=== PATIENT | female | born 1935 | race Caucasian/White ===

== ENCOUNTER 2016-11-18 09:08 | Inpatient (IN) | payer OTHER, MEDICARE ==
[~2016-11-18] VITALS: Ht 144.8 cm; Wt 38.5 kg
[~2016-11-18 09:08] MED LIST: ASPI81TA82 PO; CEPH500C3 PO; PRIN10TA PO; ZOCO10TA PO
[2016-11-18 09:27] VITALS: BP 165/105; PULSE 65; RESP 20; TEMP 98.1; O2SAT 95
[2016-11-18] MEDS ORDERED: ASPI81CH CHEW (09:35)
[2016-11-18] MEDS ORDERED: LISI10TA3 PO (09:35)
[2016-11-18] MEDS ORDERED: SODIUM CHLORIDE 0.9% FLUSH 10 ML FLUSH IV FLUSH PRN ×2 (09:45→13:00)
[2016-11-18] MEDS ORDERED: ONDANSETRON HCL 4 MG/2 ML VIAL IVP ONE (09:45)
[2016-11-18] MEDS ORDERED: MORPHINE SULFATE 4 MG/ML INJ IV PUSH ONE ×2 (09:45→14:15)
--- NOTE | 2016-11-18 09:59 | PD ---
HPI Chief Complaint: Abdominal Pain Time Seen by Provider: 09:27 Travel History International Travel<30 days: No Contact w/Intl Traveler<30days: No Traveled to known affect area: No History of Present Illness HPI 81 yo F arrives by EMS from home. She woke up with back pain. Pain then radiated to the abdomen. She was able to eat breakfast as normal, a protein shake. She reports nausea. She's had no vomiting or diarrhea. She denies fever. She has had no similar prior pain. She drinks alcohol very occasionally. To me she denies a past medical history. Here her records reveal history of hypertension and hypercholesterolemia DVT, or other medical problems including chronic back pain. Her suffered with pancreatitis. She denies any recent traumatic injury. No unusual foods. PFSH Past Medical History Hx Anticoagulant Therapy: No Blood Disorders: No Anxiety: No Depression: No Cancer: No Cardiovascular Problems: No High Cholesterol: Yes Chemotherapy: No Cerebrovascular Accident: No Diabetes: No Diminished Hearing: No Deep Vein Thrombosis: Yes Endocrine: No Genitourinary: No Hypertension: Yes Immune Disorder: No Musculoskeletal: Yes Neurologic: No Psychiatric: No Reproductive: Yes (HYSTERECTOMY) Respiratory: No Immunizations Current: Yes Radiation Therapy: No Menopausal: Yes Past Surgical History Abdominal Surgery: No AICD: No Arteriovenous Shunt: No Cardiac Surgery: No Ear Surgery: No Endocrine Surgery: No Eye Surgery: Yes (CATARACT) Genitourinary Surgery: No Gynecologic Surgery: No Hysterectomy: No Insulin Pump: No Joint Replacement: No Oral Surgery: No Pacemaker: No Thoracic Surgery: No Other Surgery: Yes (RETINAL DETACHMENT; R KNEE CAP REPLACEMENT) Social History Alcohol Use: No Tobacco Use: Yes (< 1 PACK/DAY) Substance Use: No Allergies-Medications (Allergen,Severity, Reaction): Coded Allergies: Sulfa (Verified Allergy, Severe, Hives, 11/18/16) Codeine (Verified Allergy, Intermediate, Nausea/Vomiting, 11/18/16) Reported Meds & Prescriptions Reported Meds & Active Scripts Active Reported Aspirin 81 Mg Chew 81 Mg CHEW DAILY Lisinopril 10 Mg Tab 10 Mg PO DAILY Review of Systems Except as stated in HPI: all other systems reviewed are Neg Physical Exam Narrative GENERAL: 81 yo F, WNWD, NAD SKIN: Warm and dry. HEAD: Atraumatic. Normocephalic. EYES: Pupils equal and round. No scleral icterus. No injection or drainage. ENT: No nasal bleeding or discharge. Mucous membranes pink and moist. NECK: Trachea midline. No JVD. CARDIOVASCULAR: Regular rate and rhythm. RESPIRATORY: No accessory muscle use. Clear to auscultation. Breath sounds equal bilaterally. GASTROINTESTINAL: Soft. Diffuse non-specific TTP. MUSCULOSKELETAL: Extremities without clubbing, cyanosis, or edema. No obvious deformities. NEUROLOGICAL: Awake and alert. No obvious cranial nerve deficits. Motor grossly within normal limits. Five out of 5 muscle strength in the arms and legs. Normal speech. PSYCHIATRIC: Appropriate mood and affect; insight and judgment normal. Data Data Last Documented VS Vital Signs Date Time Temp Pulse Resp B/P Pulse Ox O2 Delivery O2 Flow Rate FiO2 11/18/16 11:23 81 18 151/83 95 Room Air 11/18/16 09:27 98.1 VS reviewed Orders Complete Blood Count With Diff (11/18/16 09:40) Comprehensive Metabolic Panel (11/18/16 09:40) Lipase (11/18/16 09:40) Urinalysis - C+S If Indicated (11/18/16 09:40) Ct Abd/Pel W Iv Contrast(Rout) (11/18/16 09:40) Iv Access Insert/Monitor (11/18/16 09:40) Ecg Monitoring (11/18/16 09:40) Oximetry (11/18/16 09:40) Ondansetron Inj (Zofran Inj) (11/18/16 09:45) Sodium Chloride 0.9% Flush (Ns Flush) (11/18/16 09:45) Electrocardiogram (11/18/16 09:40) Morphine Inj (Morphine Inj) (11/18/16 09:45) Iohexol 350 Inj (Omnipaque 350 Inj) (11/18/16 11:55) Admit Order (Ed Use Only) (11/18/16 12:49) Labs Laboratory Tests Test 11/18/16 09:55 White Blood Count 9.9 TH/MM3 Red Blood Count 4.52 MIL/MM3 Hemoglobin 13.8 GM/DL Hematocrit 40.3 % Mean Corpuscular Volume 89.2 FL Mean Corpuscular Hemoglobin 30.5 PG Mean Corpuscular Hemoglobin 34.2 % Concent Red Cell Distribution Width 15.0 % Platelet Count 269 TH/MM3 Mean Platelet Volume 7.9 FL Neutrophils (%) (Auto) 81.3 % Lymphocytes (%) (Auto) 13.1 % Monocytes (%) (Auto) 4.0 % Eosinophils (%) (Auto) 0.7 % Basophils (%) (Auto) 0.9 % Neutrophils # (Auto) 8.0 TH/MM3 Lymphocytes # (Auto) 1.3 TH/MM3 Monocytes # (Auto) 0.4 TH/MM3 Eosinophils # (Auto) 0.1 TH/MM3 Basophils # (Auto) 0.1 TH/MM3 CBC Comment DIFF FINAL Differential Comment Sodium Level 135 MEQ/L Potassium Level 5.5 MEQ/L Chloride Level 102 MEQ/L Carbon Dioxide Level 26.8 MEQ/L Anion Gap 6 MEQ/L Blood Urea Nitrogen 14 MG/DL Creatinine 0.67 MG/DL Estimat Glomerular Filtration 84 ML/MIN Rate Random Glucose 115 MG/DL Calcium Level 9.0 MG/DL Total Bilirubin 0.8 MG/DL Aspartate Amino Transf 50 U/L (AST/SGOT) Alanine Aminotransferase 21 U/L (ALT/SGPT) Alkaline Phosphatase 69 U/L Total Protein 8.0 GM/DL Albumin 3.4 GM/DL Lipase 418 U/L [facility] Medical Decision Making Medical Screen Exam Complete: Yes Emergency Medical Condition: Yes Medical Record Reviewed: Yes Differential Diagnosis Constipation, Gastritis, Acute Cholecystitis, Biliary Colic, Pancreatitis, CLEMENS , Hepatitis, Bowel Obstruction, Cystitis, Mesenteric Ischemia, AAA, Appendicitis , Renal Stone/Hydronephrosis, GERD, perforated viscous Narrative Course CBC & BMP Diagram 11/18/16 09:55 Lipase 418 AST 50 LFTs otherwise normal Last 24 hours Impressions Abdomen/Pelvis CT 11/18/16 0940 Signed Impressions: Service Date/Time: Friday, November 18, 2016 11:38 - CONCLUSION: 1. There is a small amount of free fluid in the abdomen and pelvis of unknown etiology. Mild ileus. 2. Focal subsegmental consolidation medial aspect of right lower lobe incompletely evaluated. 3. No free air. No evidence for bowel obstruction. Diverticulosis without evidence for diverticulitis. 4. Osteopenia. Tip Guan MD Patient will be admitted for pancreatitis. ? R Middle Lung mass. d/w Dr Freeman. excellent pain control with 2mg morphine. Diagnosis Primary Impression: Pancreatitis Qualified Code: K85.90 - Acute pancreatitis, unspecified complication status, unspecified pancreatitis type Admitting Information Admitting Physician Requests: Admit Franco Ellison MD Nov 18, 2016 09:59
[2016-11-18 10:05] VITALS: RESP 18; O2SAT 95
[2016-11-18 10:10] LABS: BASOPHIL # 0.1 TH/MM3 (0-0.2); BASOPHIL % 0.9 % (0.0-2.0); EOSINOPHIL # 0.1 TH/MM3 (0-0.4); EOSINOPHIL % 0.7 % (0.0-4.0); HEMATOCRIT 40.3 % (35.0-46.0); HEMO FLAGS DIFF FINAL; LYMPH % 13.1 % (9.0-44.0); LYMPHOCYTE # 1.3 TH/MM3 (1.0-4.8); MEAN CELL VOLUME 89.2 FL (80.0-100.0); MEAN CORPUSCULAR HEMOGLOBIN 30.5 PG (27.0-34.0); MEAN CORPUSCULAR HGB CONC 34.2 % (32.0-36.0); NEUT % 81.3 % (16.0-70.0); PLATELET COUNT 269 TH/MM3 (150-450); RED BLOOD COUNT 4.52 MIL/MM3 (4.00-5.30); WHITE BLOOD COUNT 9.9 TH/MM3 (4.0-11.0)
[2016-11-18 10:30] LABS: ALKALINE PHOSPHATASE 69 U/L (45-117); ALT (GPT) 21 U/L (10-53); TOTAL BILIRUBIN ADULT 0.8 MG/DL (0.2-1.0)
[2016-11-18 10:51] LABS: ANION GAP 6 MEQ/L (5-15); AST (GOT) 50 U/L (15-37); BICARBONATE 26.8 MEQ/L (21.0-32.0); BLOOD UREA NITROGEN 14 MG/DL (7-18); CHLORIDE 102 MEQ/L (98-107); GLOMERULAR FILTRATION RATE 84 ML/MIN (>89); SODIUM (NA) 135 MEQ/L (136-145)
[2016-11-18 10:56] LABS: POTASSIUM 5.5 MEQ/L (3.5-5.1)
[2016-11-18 11:23] VITALS: BP 151/83; PULSE 81; RESP 18; O2SAT 95
[2016-11-18] MEDS ORDERED: IOHEXOL 350 MG/ML 10 ML VIAL (for RAD DIAG) IV ONE (11:55)
--- NOTE | 2016-11-18 12:16 | RADRPT ---
EXAM DATE/TIME: 11/18/2016 11:38 [facility] COMPARISON: No previous studies available for comparison. INDICATIONS : Lower abdomen pain today. IV CONTRAST: 60 cc Omnipaque 350 (iohexol) IV ORAL CONTRAST: No oral contrast ingested. RADIATION DOSE: 4.48 CTDIvol (mGy) MEDICAL HISTORY : Hypertension. deep vein thrombosis SURGICAL HISTORY : Hysterectomy. ENCOUNTER: Initial ACUITY: 1 day PAIN SCALE: 8/10 LOCATION: Bilateral lower quadrant TECHNIQUE: Volumetric scanning of the abdomen and pelvis was performed. Using automated exposure control and ad justment of the mA and/or kV according to patient size, radiation dose was kept as low as reasonably achievable to obtain optimal diagnostic quality images. DICOM format image data is available electro nically for review and comparison. FINDINGS: There is a focal area of consolidation in the right lower lobe medially which is incompletely evaluat ed. There is also some basilar atelectasis and mild emphysema. The bones are diffusely osteopenic. No acute fractures seen. No acute findings in the liver, spleen, adrenals, kidneys or pancreas. Aorta is tortuous and ectatic to about 2.7 cm. Portal vein is patent. There is a mild ileus. No bowel obstruction. There is colonic diverticulosis without evidence for div erticulitis. There is mild ascites in the abdomen and pelvis. Moderate coronary calcifications noted. CONCLUSION: 1. There is a small amount of free fluid in the abdomen and pelvis of unknown etiology. Mild ileus. 2. Focal subsegmental consolidation medial aspect of right lower lobe incompletely evaluated. 3. No free air. No evidence for bowel obstruction. Diverticulosis without evidence for diverticulitis . 4. Osteopenia. Tip Guan MD on November 18, 2016 at 12:08 Board Certified Radiologist. This report was verified electronically.
[2016-11-18] MEDS ORDERED: LACTULOSE SYRUP 20 GM/30 ML CUP PO PRN (13:00)
[2016-11-18] MEDS ORDERED: NALOXONE HCL 0.4 MG/ML AMP IV PRN (13:00)
[2016-11-18] MEDS ORDERED: MAGNESIUM HYDROXIDE SUSP 30 ML CUP PO PRN (13:00)
[2016-11-18] MEDS ORDERED: ONDANSETRON HCL 4 MG/2 ML VIAL IVP PRN ×2 (13:00→16:00)
[2016-11-18] MEDS ORDERED: BISACODYL 10 MG SUPP RECTAL PRN (13:00)
[2016-11-18] MEDS ORDERED: SENNOSIDES 8.6 MG TAB PO PRN (13:00)
[2016-11-18] MEDS: SODIUM CHLOR 0.9% 1000 ML INJ 1,000 ML IV SCH ×2 (13:16→21:23)
[2016-11-18 14:10] VITALS: BP 166/82; PULSE 88; RESP 18; O2SAT 95
[2016-11-18] MEDS ORDERED: ONDANSETRON HCL 4 MG/2 ML VIAL IV PUSH ONE (14:15)
[2016-11-18 15:01] LABS: BLOOD, URINE NEG (NEG); GLUCOSE,URINE NEG (NEG); KETONE, URINE 10 mg/dL (NEG); MUCUS URINE FEW /lpf (OCC); NITRITE,URINE NEG (NEG); PH, URINE 6.5 (5.0-8.5); SQUAMOUS EPITHELIAL CELL URINE 1 /hpf (0-5); URINE COLOR YELLOW (YELLW/STRAW)
[2016-11-18 15:03] LABS: COMMENT (UR) CULT NOT INDICATED; CULTURE IF INDICATED CULT NOT INDICATED
[2016-11-18] MEDS ORDERED: oxyCODONE/ACETAMINOPHEN 5 MG/325 MG TAB PO PRN (15:30)
--- NOTE | 2016-11-18 15:42 | HHI.HP ---
[facility] Nelli Patel MD Admission Diagnosis Pancreatitis, R Lung Mass, HyperK Diagnoses: Travel History International Travel<30 Days: No Contact w/Intl Traveler <30 Da: No Traveled to Known Affected Are: No History of Present Illness Mrs. Salgado is an 81-year-old female. She is here secondary to lower back pain and nausea. Workup shows elevation in lipase suggestive of pancreatitis. She does not drink alcohol but rarely. No recent alcohol use. Density at right medial lung is also seen on abdominal CT which is a mass versus pneumonia. Other conditions at baseline her hypertension lower extremity neuropathy right breast mass and kyphosis. When seen her pain is improved but she is nauseous from pain treatments. She received morphine in the ER. Zofran has benefited her nausea. She has no prior history of pancreatitis. No acute evidence of infection on labs to suggest the presence of a pneumonia. No cough, fever, chills or fatigue preceding the pain onset today. Her lower back pain could be a symptom pneumonia however. Her daughter does report she has been coughing at home. Review of Systems Constitutional: DENIES: Fatigue, Fever, Chills Eyes: DENIES: Blurred vision, Diplopia Ears, nose, mouth, throat: DENIES: Hearing loss, Vertigo Respiratory: COMPLAINS OF: Cough, DENIES: Wheezing, Shortness of breath Cardiovascular: DENIES: Chest pain, Palpitations, Syncope Gastrointestinal: COMPLAINS OF: Abdominal pain, DENIES: Black stools, Bloody stools Musculoskeletal: DENIES: Joint pain, Muscle aches Integumentary: DENIES: Abnormal pigmentation Hematologic/lymphatic: DENIES: Bruising Immunologic/allergic: DENIES: Eczema Neurologic: DENIES: Abnormal gait Psychiatric: DENIES: Anxiety, Confusion Past Family Social History Past Medical History Familial neuropathy (lower extremities) Hypertension Right breast mass Kyphosis Osteoporosis Past Surgical History Hysterectomy Retinal surgery on eye History right knee surgery Reported Medications Reported Meds & Active Scripts Active Reported Aspirin 81 Mg Chew 81 Mg CHEW DAILY Lisinopril 10 Mg Tab 10 Mg PO DAILY Allergies: Coded Allergies: Sulfa (Verified Allergy, Severe, Hives, 11/18/16) Codeine (Verified Allergy, Intermediate, Nausea/Vomiting, 11/18/16) Active Ordered Medications Administered Medications Medications (Trade) Dose Ordered Sig/Jean Route PRN Reason Start Time Stop Time Status Last Admin Dose Admin Sodium Chloride (NS 1000 ml Inj) 1,000 ml @ 125 mls/hr Q8H IV 11/18/16 12:52 11/18/16 13:16 Family History Neuropathy and father and siblings VT and mother at age 85 Social History Rarely drinks alcohol Daily smoker less than half a pack a day No drug abuse Physical Exam Vital Signs Vital Signs Date Time Temp Pulse Resp B/P Pulse Ox O2 Delivery O2 Flow Rate FiO2 11/18/16 14:10 88 18 166/82 95 Room Air 11/18/16 11:23 81 18 151/83 95 Room Air 11/18/16 10:05 18 11/18/16 10:05 18 95 Room Air 11/18/16 09:27 98.1 65 20 165/105 95 Room Air Physical Exam GENERAL: NAD, A&Ox3 HEAD: Normocephalic. NECK: Supple, trachea midline. No lymphadenopathy. EYES: No scleral icterus. No injection or drainage. CARDIOVASCULAR: Regular rate and rhythm without murmurs, gallops, or rubs. RESPIRATORY: Breath sounds equal bilaterally. No accessory muscle use. GASTROINTESTINAL: Abdomen soft, non-tender, nondistended. Epigastric tenderness MUSCULOSKELETAL: No cyanosis, or edema. Kyphosis SKIN: Warm and dry. NEURO: No focal neurological deficitis. Laboratory Laboratory Tests Test 11/18/16 11/18/16 09:55 12:15 White Blood Count 9.9 Red Blood Count 4.52 Hemoglobin 13.8 Hematocrit 40.3 Mean Corpuscular Volume 89.2 Mean Corpuscular Hemoglobin 30.5 Mean Corpuscular Hemoglobin 34.2 Concent Red Cell Distribution Width 15.0 Platelet Count 269 Mean Platelet Volume 7.9 Neutrophils (%) (Auto) 81.3 Lymphocytes (%) (Auto) 13.1 Monocytes (%) (Auto) 4.0 Eosinophils (%) (Auto) 0.7 Basophils (%) (Auto) 0.9 Neutrophils # (Auto) 8.0 Lymphocytes # (Auto) 1.3 Monocytes # (Auto) 0.4 Eosinophils # (Auto) 0.1 Basophils # (Auto) 0.1 CBC Comment DIFF FINAL Differential Comment Sodium Level 135 Potassium Level 5.5 Chloride Level 102 Carbon Dioxide Level 26.8 Anion Gap 6 Blood Urea Nitrogen 14 Creatinine 0.67 Estimat Glomerular Filtration 84 Rate Random Glucose 115 Calcium Level 9.0 Total Bilirubin 0.8 Aspartate Amino Transf 50 (AST/SGOT) Alanine Aminotransferase 21 (ALT/SGPT) Alkaline Phosphatase 69 Total Protein 8.0 Albumin 3.4 Lipase 418 Urine Color YELLOW Urine Turbidity CLEAR Urine pH 6.5 Urine Specific [place] 1.050 Urine Protein TRACE Urine Glucose (UA) NEG Urine Ketones 10 Urine Occult Blood NEG Urine Nitrite NEG Urine Bilirubin NEG Urine Urobilinogen LESS THAN 2.0 Urine Leukocyte Esterase NEG Urine RBC 1 Urine WBC 1 Urine Squamous Epithelial 1 Cells Urine Mucus FEW Microscopic Urinalysis Comment CULT NOT INDICATED Result Diagram: 11/18/1655 11/18/16954 Imaging Last Impressions Abdomen/Pelvis CT 11/18/16939 Signed Impressions: Service Date/Time: Sunday, November 18, 2016 11:38 - CONCLUSION: 1. There is a small amount of free fluid in the abdomen and pelvis of unknown etiology. Mild ileus. 2. Focal subsegmental consolidation medial aspect of right lower lobe incompletely evaluated. 3. No free air. No evidence for bowel obstruction. Diverticulosis without evidence for diverticulitis. 4. Osteopenia. Tip Guan MD Assessment and Plan Problem List: (1) Pancreatitis ICD Code: K85.90 Status: Acute Assessment and Plan Assessment and plan 81-year-old female admitted with pancreatitis and right lung mass Pancreatitis Low-fat diet IV hydration When necessary pain treatments Follow lipase level Right lung mass Possible pneumonia Start Levaquin Probiotics MRI of chest If pneumonia becomes less evident we'll discontinue antibiotics Follow CBC Hypertension Continue lisinopril Follow blood pressures Adjust if needed Lower extremity neuropathy Continue gabapentin Right breast mass This is being followed as an outpatient patient will continue to follow as an outpatient DVT prophylaxis SCDs Physician Certification 2 Midnight Certification Type: Admission for Inpatient Services Order for Inpatient Services The services are ordered in accordance with Medicare regulations or non- Medicare payer requirements, as applicable. In the case of services not specified as inpatient-only, they are appropriately provided as inpatient services in accordance with the 2-midnight benchmark. Estimated LOS (days): 4 days is the estimated time the patient will need to remain in the hospital, assuming treatment plan goals are met and no additional complications. Post-Hospital Plan: Home Problem Qualifiers (1) Pancreatitis: Qualified Code: K85.90 - Acute pancreatitis, unspecified complication status, unspecified pancreatitis type Franco Freeman MD Nov 18, 2016 15:42
[2016-11-18] MEDS ORDERED: LEVOFLOXACIN 500 MG PREMIX INJ 100 ML IV SCH (16:00)
[2016-11-18 16:25] VITALS: BP 168/95; PULSE 93; RESP 22; TEMP 97; O2SAT 93
[2016-11-18] MEDS: traMADol HCL 50 MG TAB PO PRN ×2 (17:21→22:50)
[2016-11-18] MEDS: LACTOBACILLUS ACIDOPHILUS TAB PO SCH ×2 (17:21→18:00)
[2016-11-18] MEDS: GABAPENTIN 300 MG CAP PO SCH ×2 (17:21→18:00)
[2016-11-18] MEDS ORDERED: HYDROmorphone HCL PF 1 MG/ML VIAL IV PUSH PRN (18:00)
[2016-11-18] MEDS ORDERED: HYDROmorphone HCL PF 1 MG/ML VIAL IV PUSH ONE (18:00)
[2016-11-18] MEDS: SODIUM CHLORIDE 0.9% FLUSH 10 ML FLUSH IV FLUSH SCH (19:49)
[2016-11-18 20:00] VITALS: BP 147/94; PULSE 97; RESP 16; TEMP 97.7; O2SAT 92
[2016-11-18] MEDS: DOCUSATE SODIUM 50 MG/SENNA 8.6 MG TAB PO SCH (21:23)
[2016-11-19] VITALS (11 sets, daily range): BP systolic 72–141; BP diastolic 48–91; PULSE 79–104; RESP 14–25; TEMP 96.9–97.6; O2SAT 92–98
[2016-11-19] MEDS: SODIUM CHLOR 0.9% 1000 ML INJ 1,000 ML IV SCH ×4 (04:52→21:04)
[2016-11-19 06:48] LABS: BASOPHIL % 0.1 % (0.0-2.0); HEMATOCRIT 43.6 % (35.0-46.0); LYMPH % 6.2 % (9.0-44.0); LYMPHOCYTE # 1.1 TH/MM3 (1.0-4.8); MEAN CELL VOLUME 90.6 FL (80.0-100.0); MEAN CORPUSCULAR HEMOGLOBIN 29.3 PG (27.0-34.0); MEAN CORPUSCULAR HGB CONC 32.4 % (32.0-36.0); MONO % 6.2 % (0.0-8.0); NEUT % 87.5 % (16.0-70.0); PLATELET COUNT 203 TH/MM3 (150-450); RED BLOOD COUNT 4.81 MIL/MM3 (4.00-5.30); RED CELL DISTRIBUTION WIDTH 14.9 % (11.6-17.2); WHITE BLOOD COUNT 18.3 TH/MM3 (4.0-11.0)
[2016-11-19 07:01] LABS: HEMO FLAGS AUTO DIFF
[2016-11-19 07:23] LABS: BICARBONATE 21.5 MEQ/L (21.0-32.0); POTASSIUM 3.8 MEQ/L (3.5-5.1)
[2016-11-19] MEDS ORDERED: SODIUM CHLORID 0.9% 500 ML INJ 500 ML IV ONE ×3 (08:15→17:45)
[2016-11-19] MEDS ORDERED: VANCOMYCIN INJ 1,000 MG in SODIUM CHLOR 0.9% 250 ML INJ 250 ML IV SCH (08:15)
--- NOTE | 2016-11-19 08:20 | HHI.PR ---
Subjective Remarks No acute events overnight. Patient reports subjective fever/chills. Is tachycardic to 101 and hypotensive this morning. States she has been short of breath. Denies any abdominal pain. Endorses nausea with last emesis being this morning. Objective Vitals Vital Signs Date Time Temp Pulse Resp B/P Pulse Ox O2 Delivery O2 Flow Rate FiO2 11/19/16 04:00 16 11/19/16 04:00 97.0 96 16 97/75 94 11/19/16 00:00 96.9 101 16 141/91 93 11/18/16 20:00 97.7 97 16 147/94 92 11/18/16 16:25 97.0 93 22 168/95 93 11/18/16 14:10 88 18 166/82 95 Room Air 11/18/16 11:23 81 18 151/83 95 Room Air 11/18/16 10:05 18 11/18/16 10:05 18 95 Room Air 11/18/16 09:27 98.1 65 20 165/105 95 Room Air I/O 11/18/16 11/18/16 11/18/16 11/19/16 11/19/16 11/19/16 07:00 15:00 23:00 07:00 15:00 23:00 Intake Total 360 ml 240 ml Balance 360 ml 240 ml Intake Oral 360 ml 240 ml # Voids 3 1 Result Diagram: 11/19/16 0546 11/19/16 0546 Objective Remarks GENERAL: NAD, A&Ox3 HEAD: Normocephalic. NECK: Supple, trachea midline. No lymphadenopathy. EYES: No scleral icterus. No injection or drainage. CARDIOVASCULAR: Regular rate and rhythm without murmurs, gallops, or rubs. RESPIRATORY: Breath sounds equal bilaterally. No accessory muscle use. GASTROINTESTINAL: Abdomen soft, non-tender, nondistended. Epigastric tenderness MUSCULOSKELETAL: No cyanosis, or edema. Kyphosis SKIN: Warm and dry. NEURO: No focal neurological deficitis. A/P Problem List: (1) Pancreatitis ICD Code: K85.90 Status: Acute (2) Sepsis ICD Code: A41.9 Status: Acute (3) HTN (hypertension) ICD Code: I10 Status: Acute Assessment and Plan Assessment and plan 81-year-old female admitted with pancreatitis and right lung mass versus consolidation Sepsis Patient tachycardic and hypotensive, endorsing subjective fever/chills. New- onset leukocytosis this morning. CT of the abdomen and pelvis revealed focal subsegmental consolidation versus mass. Patient started on Levaquin for possible pneumonia. UA within normal limits Started Vanc/Zosyn for probable pneumonia with sepsis Chest CT to further characterize pneumonia versus mass IV fluid bolus for hypotension and tachycardia Continue IV fluids Pancreatitis Patient with normal pancreas on CT abdomen and lipase level which has now returned to normal. Remains nauseated. Continue IV fluids. Low-fat diet. Right lung mass versus consolidation Possible pneumonia DC Levaquin and started antibiotics as above Hypertension Continue home lisinopril Follow blood pressures Adjust if needed Lower extremity neuropathy Continue gabapentin Right breast mass This is being followed as an outpatient patient will continue to follow as an outpatient DVT prophylaxis SCDs Lovenox Problem Qualifiers (1) Pancreatitis: Qualified Code: K85.90 - Acute pancreatitis, unspecified complication status, unspecified pancreatitis type Jalyn Brower MD R3 Nov 19, 2016 08:20
[2016-11-19 08:46] LABS: BANDS 21 % (0-6); NEUTROPHIL # MANUAL DIFF 17.4 TH/MM3 (1.8-7.7); PLATELET ESTIMATE SMEAR NORMAL (NORMAL); PLATELET MORPHOLOGY NORMAL (NORMAL); POLYS (SEG NEUTROPHILS) 74 % (16-70); WBC DIFF SAMPLE 100
[2016-11-19 08:47] LABS: SCAN/DIFF FINAL DIFF MANUAL
[2016-11-19] MEDS ORDERED: IOHEXOL 350 MG/ML 10 ML VIAL (for RAD DIAG) IV ONE (08:54)
[2016-11-19] MEDS: DOCUSATE SODIUM 50 MG/SENNA 8.6 MG TAB PO SCH ×2 (09:00→21:00)
[2016-11-19] MEDS: LISINOPRIL 10 MG TAB PO SCH (09:00)
--- NOTE | 2016-11-19 09:05 | RADRPT ---
EXAM DATE/TIME: 11/19/2016 08:48 [facility] COMPARISON: CT ABDOMEN & PELVIS W CONTRAST, November 18, 2016, 11:38. INDICATIONS : Abnormal chest x-ray, Right lower lobe density. IV CONTRAST: 65 cc Omnipaque 350 (iohexol) IV RADIATION DOSE: 5.13 CTDIvol (mGy) MEDICAL HISTORY : DVT SURGICAL HISTORY : Hysterectomy. ENCOUNTER: Initial ACUITY: 1 day PAIN SCALE: 0/10 LOCATION: Right lower chest TECHNIQUE: Volumetric scanning of the chest was performed. Using automated exposure control and adjustment of t he mA and/or kV according to patient size, radiation dose was kept as low as reasonably achievable to obtain optimal diagnostic quality images. DICOM format image data is available electronically for review and comparison. FINDINGS: There is severe emphysema. There is a large amount of ascites within the abdomen, and extensive ather osclerotic plaquing of the aorta identified, as well as the coronary arteries. There is no adenopathy in the mediastinum or hilar regions. Small bilateral pleural effusions are identified. The right pos terior costophrenic angle medially in the right lower lobe in the area of consolidative opacity measu ring 4.3 x 1.5 cm in transverse and AP dimension is identified. I believe this finding represents an area of focal atelectasis rather than a true mass. There is scarring in the right middle lobe. There is kyphosis and decreased bone density with degenerative changes of the spine noted. There is ectasia of the upper abdominal aorta measuring up to 2.9 cm on image 7. CONCLUSION: 1. Severe emphysema, small bilateral effusions. 2. Right middle lobe scarring. 3. Probable area of focal atelectasis right lower lobe posterior costophrenic angle. Three-month foll owup CT chest recommended. Ronak See MD on November 19, 2016 at 8:59 Board Certified Radiologist. This report was verified electronically.
[2016-11-19] MEDS: ASPIRIN 81 MG CHEW TAB CHEW SCH (09:22)
[2016-11-19] MEDS: LACTOBACILLUS ACIDOPHILUS TAB PO SCH ×3 (09:22→17:03)
[2016-11-19] MEDS: GABAPENTIN 300 MG CAP PO SCH ×3 (09:22→17:03)
[2016-11-19] MEDS: SODIUM CHLORIDE 0.9% FLUSH 10 ML FLUSH IV FLUSH SCH ×2 (09:23→21:00)
[2016-11-19] MEDS: PIPERACIL-TAZO 4.5 GM PREMIX 100 ML IV SCH ×3 (09:42→22:21)
[2016-11-19] MEDS: ENOXAPARIN SODIUM 40 MG/0.4 ML SYRINGE SQ SCH (09:46)
[2016-11-19] MEDS ORDERED: Vancomycin Consult Pharmacy 1 EA OTHER SCH (10:15)
[2016-11-19] MEDS ORDERED: VANCOMYCIN INJ 750 MG in SODIUM CHLOR 0.9% 250 ML INJ 250 ML IV SCH (12:00)
--- NOTE | 2016-11-19 13:23 | EKG ---
Date Performed: 11/18/2016 Time Performed: 10:19:42 PTAGE: 81 years EKG: Sinus rhythm NORMAL ECG PREVIOUS TRACING : 01/21/2008 09.53 Compared to prior tracing no significant change DOCTOR: Ysabel Schrader Interpretating Date/Time 11/19/2016 13:19:09
[2016-11-19 14:31] LABS: LACTIC ACID GHOST NOT REPORTABLE
--- NOTE | 2016-11-19 15:56 | PD.TRANSFR ---
Transfer Summary Admission Date Nov 18, 2016 at 12:55 Transfer Date: Nov 19, 2016 Admitting Diagnosis Pancreatitis, R Lung Mass, HyperK Diagnoses: (1) Pancreatitis Diagnosis: Principal (2) Sepsis Diagnosis: Principal (3) HTN (hypertension) Diagnosis: Secondary Imaging Last [address] 11/19/16 0000 Signed Impressions: Service Date/Time: Saturday, November 19, 2016 08:48 - CONCLUSION: 1. Severe emphysema, small bilateral effusions. 2. Right middle lobe scarring. 3. Probable area of focal atelectasis right lower lobe posterior costophrenic angle. Three-month followup CT chest recommended. Ronak See MD Abdomen/Pelvis CT 11/18/16 0940 Signed Impressions: Service Date/Time: Friday, November 18, 2016 11:38 - CONCLUSION: 1. There is a small amount of free fluid in the abdomen and pelvis of unknown etiology. Mild ileus. 2. Focal subsegmental consolidation medial aspect of right lower lobe incompletely evaluated. 3. No free air. No evidence for bowel obstruction. Diverticulosis without evidence for diverticulitis. 4. Osteopenia. Tip Guan MD Significant Findings Laboratory Tests Test 11/18/16 11/18/16 11/19/16 11/19/16 09:55 12:15 05:46 12:24 Neutrophils (%) (Auto) 81.3 % 87.5 % (16.0-70.0) (16.0-70.0) Neutrophils # (Auto) 8.0 TH/MM3 16.0 TH/MM3 (1.8-7.7) (1.8-7.7) Sodium Level 135 MEQ/L 134 MEQ/L (136-145) (136-145) Potassium Level 5.5 MEQ/L (3.5-5.1) Estimat Glomerular Filtration 84 ML/MIN (>89) 62 ML/MIN (>89) Rate Random Glucose 115 MG/DL 157 MG/DL (74-106) (74-106) Aspartate Amino Transf 50 U/L (15-37) (AST/SGOT) Lipase 418 U/L 56 U/L (73-393) (73-393) Urine Specific [place] 1.050 (1.002-1.035) Urine Ketones 10 mg/dL (NEG) Urine Mucus FEW /lpf (OCC) White Blood Count 18.3 TH/MM3 (4.0-11.0) Lymphocytes (%) (Auto) 6.2 % (9.0-44.0) Monocytes # (Auto) 1.1 TH/MM3 (0-0.9) Neutrophils % (Manual) 74 % (16-70) Band Neutrophils % 21 % (0-6) Lymphocytes % 3 % (9-44) Neutrophils # (Manual) 17.4 TH/MM3 (1.8-7.7) Blood Urea Nitrogen 22 MG/DL (7-18) Calcium Level 8.3 MG/DL (8.5-10.1) Amylase Level 22 U/L (25-115) Lactic Acid Level 3.0 mmol/L (0.4-2.0) Transfer Summary 81 yo female with PMH of HTN and breast mass being followed as outpatient admitted on 11/18 for abdominal pain and nausea/vomiting. Found to have lipase of 418, admitted for pancreatitis. Treated with IVFs and low fat diet. CT abd/ pelvis unremarkable with possible mass vs consolidation in RLL. Patient developed a new leukocytosis this morning with hypotension not responsive to fluid. She became altered, thinking she was at home. A&O x [address] chest was remarkable for lung scarring, no consolidation. Lactic acid 3.0. Remains hypotensive in the 70s/50s despite aggressive fluid resuscitation. Started on Vanc/Zosyn this am for SIRS without improvement. Patient will be transferred to the ICU for septic shock. Jalyn Brower MD R3 Nov 19, 2016 15:56
--- NOTE | 2016-11-19 16:07 | PD.CONS ---
HPI Service Critical Care Medicine Consult Requested By [facility] Reason for Consult Dehydration Primary Care Physician Nelli Patel MD History of Present Illness 81 y/o woman presented through ED with nausea and back pain. Mild elevation in lipase. Leukocytosis has developed overnight associated with mild hypothermia and hypotension (in a normally hypertensive woman). Now apparently hypotensive and not responding to initial fluid challenges. LV is hypertrophied on CT scan and empty. No obvious acute pathology aside from ascites and a pancake of atelectasis in the right lung base. Lungs are severely emphysematous on CT, mid right lung field opacity/scar does not look acute. Update 1804 hrs: She had another episode of hypotension to the low 80s and developed garbled speech. We will start neosynephrine and obtain a head CT. She has extensive atherosclerotic disease and undoubtedly is accustomed to a much higher blood pressure. Review of Systems Constitutional: DENIES: Diaphoretic episodes, Fatigue, Fever, Weight gain, Weight loss, Chills, Dizziness, Change in appetite, Night Sweats Endocrine: DENIES: Abnorml menstrual pattern, Heat/cold intolerance, Polydipsia , Polyuria, Polyphagia Eyes: DENIES: Blurred vision, Diplopia, Eye inflammation, Eye pain, Vision loss , Photosensitivity, Double Vision Ears, nose, mouth, throat: DENIES: Tinnitus, Hearing loss, Vertigo, Nasal discharge, Oral lesions, Throat pain, Hoarseness, Ear Pain, Running Nose, Epistaxis, Sinus Pain, Toothache, Odynophagia Respiratory: COMPLAINS OF: Shortness of breath Cardiovascular: DENIES: Chest pain, Palpitations, Syncope, Dyspnea on Exertion , PND, Lower Extremity Edema, Orthopnea, Claudication Gastrointestinal: COMPLAINS OF: Abdominal pain Integumentary: DENIES: Abnormal pigmentation, Pruritus, Rash, Nail changes, Breast masses, Breast skin changes, Nipple discharge Immunologic/allergic: DENIES: Eczema, Urticaria Past Family Social History Allergies: Coded Allergies: Sulfa (Verified Allergy, Severe, Hives, 11/18/16) Codeine (Verified Allergy, Intermediate, Nausea/Vomiting, 11/18/16) Past Medical History Past Medical History Familial neuropathy (lower extremities) Hypertension Right breast mass Kyphosis Osteoporosis Past Surgical History Hysterectomy Retinal surgery on eye History right knee surgery Reported Medications Reported Meds & Active Scripts Active Reported Aspirin 81 Mg Chew 81 Mg CHEW DAILY Lisinopril 10 Mg Tab 10 Mg PO DAILY Allergies: Coded Allergies: Sulfa (Verified Allergy, Severe, Hives, 11/18/16) Codeine (Verified Allergy, Intermediate, Nausea/Vomiting, 11/18/16) Active Ordered Medications Physical Exam Vital Signs Vital Signs Date Time Temp Pulse Resp B/P Pulse Ox O2 Delivery O2 Flow Rate FiO2 11/19/16 15:22 76/55 11/19/16 15:21 72/58 11/19/16 12:40 84/48 11/19/16 12:00 104 11/19/16 12:00 97.3 99 22 86/60 93 11/19/16 09:30 97 11/19/16 08:00 97.0 96 22 98/73 94 11/19/16 04:00 16 11/19/16 04:00 97.0 96 16 97/75 94 11/19/16 00:00 96.9 101 16 141/91 93 11/18/16 20:00 97.7 97 16 147/94 92 11/18/16 16:25 97.0 93 22 168/95 93 Physical Exam P 76, BP 136/78, R 15, sats 95% Head: Atraumatic. Neck: Chronically stiff, airway widely patent. Lungs: Light chronic wheezes, good air movement. Heart: NL S1S2, distant tones. No JVD. Extremities: Warm, aside from feet which are tepid/cool. Viable. Neuro: Alert, O X 3, cooperative. Moves 4 limbs to command. EOMs intact, PERLITA. Laboratory Laboratory Tests Test 11/19/16 11/19/16 05:46 12:24 White Blood Count 18.3 Red Blood Count 4.81 Hemoglobin 14.1 Hematocrit 43.6 Mean Corpuscular Volume 90.6 Mean Corpuscular Hemoglobin 29.3 Mean Corpuscular Hemoglobin 32.4 Concent Red Cell Distribution Width 14.9 Platelet Count 203 Mean Platelet Volume 8.0 Neutrophils (%) (Auto) 87.5 Lymphocytes (%) (Auto) 6.2 Monocytes (%) (Auto) 6.2 Eosinophils (%) (Auto) 0.0 Basophils (%) (Auto) 0.1 Neutrophils # (Auto) 16.0 Lymphocytes # (Auto) 1.1 Monocytes # (Auto) 1.1 Eosinophils # (Auto) 0.0 Basophils # (Auto) 0.0 CBC Comment AUTO DIFF Differential Total Cells 100 Counted Neutrophils % (Manual) 74 Band Neutrophils % 21 Lymphocytes % 3 Monocytes % 2 Neutrophils # (Manual) 17.4 Differential Comment FINAL DIFF MANUAL Platelet Estimate NORMAL Platelet Morphology Comment NORMAL Red Cell Morphology Comment NORMAL Sodium Level 134 Potassium Level 3.8 Chloride Level 101 Carbon Dioxide Level 21.5 Anion Gap 12 Blood Urea Nitrogen 22 Creatinine 0.87 Estimat Glomerular Filtration 62 Rate Random Glucose 157 Calcium Level 8.3 Amylase Level 22 Lipase 56 Lactic Acid Level 3.0 Result Diagram: 11/19/1646 11/19/16545 Assessment and Plan Assessment and Plan Assessment: 1. Hypotension. 2. Dehydration. 3. Possible sepsis. 4. Pancreatitis ? 5. Ascites. Plan: 1. Aggressive hydration. 2. Broad abx coverage pending C&S. 3. Serial lactate. 4. Clarify care goals / code status. 5. Pepcid 6. SCDs. 7. Seymour. 8. Bronchodilators. Overall impression: She appears moderately dehydrated and has responded to iv volume. Follow urine output; assure > 30/hr. Vish Becerra MD Nov 19, 2016 16:07
[2016-11-19] MEDS ORDERED: NOREPINEPHRINE-DEXTROSE DRIP 250 ML IV ONE (18:12)
[2016-11-19] MEDS ORDERED: TERBUTALINE INJ 1 MG/ML AMP SQ PRN (18:15)
[2016-11-19] MEDS: PHENYLEPHRINE INJ 80 MG in DEXTROSE 5% IN WATE 500 ML INJ 492 ML IV SCH ×2 (18:20)
[2016-11-19 20:20] LABS: CREATINE KINASE 197 U/L (26-192)
[2016-11-19 20:32] LABS: CKMB 9.7 NG/ML (0.5-3.6)
--- NOTE | 2016-11-19 22:15 | RADRPT ---
EXAM DATE/TIME: 11/19/2016 21:40 [facility] COMPARISON: No previous studies available for comparison. INDICATIONS : Slurred speech. RADIATION DOSE: 56.35 CTDIvol (mGy) MEDICAL HISTORY : Hypertension. Deep venous thrombosis. SURGICAL HISTORY : None. ENCOUNTER: Initial ACUITY: 1 day PAIN SCALE: 0/10 LOCATION: cranial TECHNIQUE: Multiple contiguous axial images were obtained of the head. Using automated exposure control and adj ustment of the mA and/or kV according to patient size, radiation dose was kept as low as reasonably a chievable to obtain optimal diagnostic quality images. DICOM format image data is available electro nically for review and comparison. FINDINGS: CEREBRUM: The ventricles are normal for age. No evidence of midline shift, mass lesion, hemorrhage or acute in farction. No extra-axial fluid collections are seen. POSTERIOR FOSSA: The cerebellum and brainstem are intact. The 4th ventricle is midline. The cerebellopontine angle i s unremarkable. EXTRACRANIAL: The visualized portion of the orbits is intact. SKULL: The calvaria is intact. No evidence of skull fracture. CONCLUSION: No acute disease. Dany Zheng MD on November 19, 2016 at 22:13 Board Certified Radiologist. This report was verified electronically.
[2016-11-19] MEDS: ACETAMINOPHEN 500 MG CPLT PO PRN (22:23)
[2016-11-20] VITALS (13 sets, daily range): BP systolic 84–128; BP diastolic 50–81; PULSE 83–120; RESP 18–32; TEMP 97.5–100.3; O2SAT 78–100
[2016-11-20] MEDS: SODIUM CHLOR 0.9% 1000 ML INJ 1,000 ML IV SCH ×3 (01:13→21:14)
[2016-11-20] MEDS: PHENYLEPHRINE INJ 80 MG in DEXTROSE 5% IN WATE 500 ML INJ 492 ML IV SCH ×8 (02:30→16:20)
[2016-11-20 02:45] LABS: CKMB 12.7 NG/ML (0.5-3.6)
[2016-11-20] MEDS: PIPERACIL-TAZO 4.5 GM PREMIX 100 ML IV SCH ×2 (04:16→08:09)
[2016-11-20 04:55] LABS: AUTOMATED NEUTROPHIL # 15.1 TH/MM3 (1.8-7.7); BASOPHIL % 0.1 % (0.0-2.0); EOSINOPHIL % 0.1 % (0.0-4.0); HEMATOCRIT 39.5 % (35.0-46.0); HEMO FLAGS DIFF FINAL; LYMPH % 6.3 % (9.0-44.0); LYMPHOCYTE # 1.1 TH/MM3 (1.0-4.8); MEAN CELL VOLUME 91.6 FL (80.0-100.0); MEAN CORPUSCULAR HEMOGLOBIN 29.1 PG (27.0-34.0); MEAN CORPUSCULAR HGB CONC 31.8 % (32.0-36.0); MONO % 5.1 % (0.0-8.0); NEUT % 88.4 % (16.0-70.0); PLATELET COUNT 199 TH/MM3 (150-450); RED BLOOD COUNT 4.32 MIL/MM3 (4.00-5.30); RED CELL DISTRIBUTION WIDTH 15.1 % (11.6-17.2); WHITE BLOOD COUNT 17.1 TH/MM3 (4.0-11.0)
[2016-11-20] MEDS: ACETAMINOPHEN 500 MG CPLT PO PRN (06:07)
--- NOTE | 2016-11-20 07:16 | HHI.CCPN ---
Subjective Remarks/Hospital Course 81 y/o woman presented through ED with nausea and back pain. Mild elevation in lipase. Leukocytosis has developed overnight associated with mild hypothermia and hypotension (in a normally hypertensive woman). Now apparently hypotensive and not responding to initial fluid challenges. LV is hypertrophied on CT scan and empty. No obvious acute pathology aside from ascites and a pancake of atelectasis in the right lung base. Lungs are severely emphysematous on CT, mid right lung field opacity/scar does not look acute. Update 1805 hrs: She had another episode of hypotension to the low 80s and developed garbled speech. We will start neosynephrine and obtain a head CT. She has extensive atherosclerotic disease and undoubtedly is accustomed to a much higher blood pressure. 11/20: Head CT without acute injury. Persistently elevated wbcs, etiology unclear. Urine benign on admission. Right lung atelectasis not impressive. Objective Vital Signs Date Time Temp Pulse Resp B/P Pulse Ox O2 Delivery O2 Flow Rate FiO2 11/20/16 04:00 97.5 83 22 125/74 100 11/20/16 03:21 Simple Mask 6.00 Intake and Output 11/19/16 11/19/16 11/20/16 08:00 16:00 00:00 Intake Total 240 ml 1550 ml 873 ml Output Total 300 ml Balance 240 ml 1550 ml 573 ml Result Diagram: 11/20/16 0359 11/19/16 0546 Objective Remarks P 73, BP 123/76, R 16, sats 95%, T 97.6 Head: Atraumatic. Neck: Chronically stiff, nontender to motion. airway widely patent. Lungs: Light chronic wheezes, good air movement. Heart: NL S1S2, distant tones. No JVD. Extremities: Warm, aside from feet which are tepid/cool. Viable, perfused Neuro: Alert, O X 3, cooperative. Moves 4 limbs to command. EOMs intact, PERLITA.Speech improved. A/P Assessment and Plan Assessment: 1. Hypotension. 2. Dehydration. 3. Possible sepsis. 4. Pancreatitis ? 5. Ascites. Plan: 1. Aggressive hydration. 2. Broad abx coverage pending C&S. 3. Serial lactate. 4. Clarify care goals / code status. 5. Pepcid 6. SCDs. 7. Seymour. 8. Bronchodilators. 9. CT Head -> normal for age. 10. Cardiac markers -> neg 11. Carotid doppler study. Overall impression: Critically ill with unstable neurological status - waxing/ waning speech changes, improved on vasopressor support of blood pressure. She appeared moderately dehydrated on arrival and has responded to iv volume. Urine output acceptable. Her cerebral perfusion becomes compromised with hypotension. Persistent leukocytosis is worrisome. Update 1700 hours: After a lengthy discussion with the patient's daughter who is the healthcare surrogate, the surrogate has acknowledged a precipitous decline in Janel's mental status. She opts for DNR status now and no further aggressive efforts to sustain vital signs. Critical care 39 mins Vish Becerra MD Nov 20, 2016 07:15
[2016-11-20 07:20] LABS: ALKALINE PHOSPHATASE 40 U/L (45-117); ALT (GPT) 15 U/L (10-53); ANION GAP 10 MEQ/L (5-15); AST (GOT) 24 U/L (15-37); BLOOD UREA NITROGEN 29 MG/DL (7-18); CHLORIDE 104 MEQ/L (98-107); GLOMERULAR FILTRATION RATE 33 ML/MIN (>89); SODIUM (NA) 135 MEQ/L (136-145); TOTAL BILIRUBIN ADULT 0.5 MG/DL (0.2-1.0)
[2016-11-20] MEDS: LISINOPRIL 10 MG TAB PO SCH (08:09)
[2016-11-20] MEDS: SODIUM CHLORIDE 0.9% FLUSH 10 ML FLUSH IV FLUSH SCH ×2 (08:09→21:14)
[2016-11-20] MEDS: GABAPENTIN 300 MG CAP PO SCH ×2 (08:09→11:37)
[2016-11-20] MEDS: ASPIRIN 81 MG CHEW TAB CHEW SCH (08:09)
[2016-11-20] MEDS: LACTOBACILLUS ACIDOPHILUS TAB PO SCH ×3 (08:09→17:21)
[2016-11-20] MEDS: DOCUSATE SODIUM 50 MG/SENNA 8.6 MG TAB PO SCH ×2 (08:10→21:00)
[2016-11-20] MEDS: ENOXAPARIN SODIUM 40 MG/0.4 ML SYRINGE SQ SCH (08:10)
[2016-11-20 09:27] LABS: CREATINE KINASE 377 U/L (26-192)
[2016-11-20 09:42] LABS: CKMB 14.1 NG/ML (0.5-3.6)
--- NOTE | 2016-11-20 10:19 | RADRPT ---
EXAM DATE/TIME: 11/20/2016 08:48 [facility] COMPARISON: No previous studies available for comparison. INDICATIONS : Slurred speech. MEDICAL HISTORY : Hypercholesterolemia. Osteoporosis. Deep venous thrombosis. Dyspnea. HTN. SURGICAL HISTORY : Hysterectomy. Left cataract removed. Right knee cap replacement. ENCOUNTER: Initial ACUITY: 1 day PAIN SCORE: 0/10 LOCATION: Bilateral neck PEAK SYSTOLIC VELOCITIES (cm/sec): ICA/CCA RATIO: Right: 0.9 Left: 1.0 ICA: Right: 63 Left: 90 CCA: Right: 67 Left: 86 ECA: Right: 81 Left: 39 VERTEBRAL: Right: 72 antegrade Left: 55 antegrade Elevated flow velocities and ICA/CCA ratios have been found to correlate with increased degrees of vessel stenosis, calculated as percentage of diameter relative to a normal segment of distal ICA/CCA FINDINGS: RIGHT CAROTID: There is no evidence for a hemodynamically significant carotid stenosis. Minimal int imal hyperplasia is present with scattered calcific plaque. LEFT CAROTID: There is no evidence for a hemodynamically significant carotid stenosis. Minimal inti mal hyperplasia is present with scattered calcific plaque. VERTEBRAL ARTERIES: Flow is antegrade in both vertebral arteries. MISCELLANEOUS: There are no ancillary masses or adenopathy. CONCLUSION: Negative examination for a hemodynamically significant carotid stenosis. Nicolas Galvan MD FACR Board Certified Radiologist. This report was verified electronically.
--- NOTE | 2016-11-20 10:38 | MB ---
cc: MIKE NAPIER M.D. DATE OF CONSULTATION: 11/20/2016 HISTORY OF PRESENT ILLNESS The patient is an 81-year-old female seen in neurological consultation in regards to slurred speech with fluctuation. She has been admitted to the hospital because of some nausea, back pain and leukocytosis. She was admitted 2 days ago. Yesterday she had garbled speech in association with hypotension. She was subsequently transferred to the unit and now receiving . PAST MEDICAL HISTORY 1. Neuropathy. 2. Hypertension. 3. Osteoporosis. 4. Breast mass. MEDICATIONS She takes aspirin and lisinopril at home. NEUROLOGICAL EXAMINATION The neurological exam shows the patient to be in some respiratory distress and receiving oxygen therapy. She is awake, pleasant and cooperative. She knows her age and seems to have some orientation to where she resides but was a bit confused about the place. She was looking around in the room looking for "Dany." Her speech was fairly clear. She was able to count fingers in right and left perez. No facial asymmetry. She is gripping reasonably strongly. She is frail with her history of emphysema. She has reflexes 1+ and plantar responses were flexor. IMAGING The CT brain showed no acute process. The carotid ultrasound is pending. ASSESSMENT 1. Transient, recurrent dysarthric speech, possibly just related to hypotension. 2. Severe COPD. PLAN/RECOMMENDATIONS Carotid ultrasound is pending. I do not think we need any other neurologic intervention at this point. Monitor the neurological course. Continue the aspirin and the aggressive medical care. I will follow the neurological course. Thank you for asking us to assist in her care. MD NAPOLEON Hobbs/ABDULAZIZ /10:18 AM /10:34 AM
[2016-11-20] MEDS: traMADol HCL 50 MG TAB PO PRN (11:37)
[2016-11-20] MEDS ORDERED: VANCOMYCIN INJ 500 MG in SODIUM CHLORIDE 0.9% INJ 100 ML IV SCH (12:00)
--- NOTE | 2016-11-20 15:08 | EKG ---
Date Performed: 11/19/2016 Time Performed: 19:19:15 PTAGE: 81 years EKG: Sinus rhythm Since previous tracing, no significant change noted NORMAL ECG PREVIOUS TRACING : 11/18/2016 10.19 DOCTOR: Wagner Silva Interpretating Date/Time 11/20/2016 15:07:41
[2016-11-20] MEDS: PIPERACIL-TAZO 2.25 GM PREMIX 50 ML IV SCH (17:18)
[2016-11-20] MEDS ORDERED: PHENYLEPHRINE INJ 80 MG in DEXTROSE 5% IN WATE 500 ML INJ 492 ML IV SCH ×2 (18:00)
[2016-11-20] MEDS ORDERED: MORPHINE SULFATE 4 MG/ML INJ IV PUSH PRN (18:00)
[2016-11-20] MEDS ORDERED: LORazepam 2 MG/ML VIAL IV PUSH PRN (18:00)
[2016-11-21] VITALS: BP 77/54; PULSE 106; RESP 32; TEMP 98.8
[2016-11-21] MEDS: PIPERACIL-TAZO 2.25 GM PREMIX 50 ML IV SCH (01:47)
[2016-11-21 02:00] VITALS: PULSE 110
[2016-11-21 04:00] VITALS: BP 55/38; PULSE 112; RESP 28; TEMP 98.6
[2016-11-21 04:13] LABS: AUTOMATED NEUTROPHIL # 13.9 TH/MM3 (1.8-7.7); BASOPHIL % 0.2 % (0.0-2.0); EOSINOPHIL % 0.1 % (0.0-4.0); HEMATOCRIT 32.5 % (35.0-46.0); LYMPH % 4.7 % (9.0-44.0); LYMPHOCYTE # 0.7 TH/MM3 (1.0-4.8); MEAN CELL VOLUME 93.5 FL (80.0-100.0); MEAN CORPUSCULAR HEMOGLOBIN 30.4 PG (27.0-34.0); MEAN CORPUSCULAR HGB CONC 32.5 % (32.0-36.0); MONO % 0.3 % (0.0-8.0); NEUT % 94.7 % (16.0-70.0); PLATELET COUNT 184 TH/MM3 (150-450); RED BLOOD COUNT 3.47 MIL/MM3 (4.00-5.30); RED CELL DISTRIBUTION WIDTH 15.6 % (11.6-17.2); WHITE BLOOD COUNT 14.7 TH/MM3 (4.0-11.0)
[2016-11-21 04:18] LABS: HEMO FLAGS AUTO DIFF
[2016-11-21 06:00] VITALS: PULSE 57
[2016-11-21 07:10] LABS: BANDS 46 % (0-6); CORRECTED NUCLEATED RBC 3 /100 WBC (0-0); METAMYELOCYTES 31 % (0-1); NEUTROPHIL # MANUAL DIFF 14.1 TH/MM3 (1.8-7.7); POLYS (SEG NEUTROPHILS) 19 % (16-70); WBC DIFF SAMPLE 100
[2016-11-21 07:11] LABS: ACANTHOCYTES OCC (NORMAL)
[2016-11-21 07:12] LABS: SCAN/DIFF FINAL DIFF MANUAL; TOXIC VACUOLATION PRESENT (NONE SEEN)
--- NOTE | 2016-11-21 07:27 | HHI.CCPN ---
Subjective Remarks/Hospital Course 81 y/o woman presented through ED with nausea and back pain. Mild elevation in lipase. Leukocytosis has developed overnight associated with mild hypothermia and hypotension (in a normally hypertensive woman). Now apparently hypotensive and not responding to initial fluid challenges. LV is hypertrophied on CT scan and empty. No obvious acute pathology aside from ascites and a pancake of atelectasis in the right lung base. Lungs are severely emphysematous on CT, mid right lung field opacity/scar does not look acute. Update 1805 hrs: She had another episode of hypotension to the low 80s and developed garbled speech. We will start neosynephrine and obtain a head CT. She has extensive atherosclerotic disease and undoubtedly is accustomed to a much higher blood pressure. 11/20: Head CT without acute injury. Persistently elevated wbcs, etiology unclear. Urine benign on admission. Right lung atelectasis not impressive. 11/21: Family elected to stop vasopressor and allow a natural . Patient gradually slipped into unconsciousness and at 0640 hours. Some family at bedside. Objective Vital Signs Date Time Temp Pulse Resp B/P Pulse Ox O2 Delivery O2 Flow Rate FiO2 11/21/16 06:00 57 11/21/16 04:00 98.6 28 55/38 11/20/16 21:00 84 Simple Mask 9.00 Intake and Output 11/20/16 11/20/16 11/21/16 08:00 16:00 00:00 Intake Total 1382 ml 1708 ml 1447 ml Output Total 450 ml 75 ml 25 ml Balance 932 ml 1633 ml 1422 ml Result Diagram: 11/21/16 0338 11/20/16 0359 Objective Remarks Head: Atraumatic. Neck: Chronically stiff, nontender to motion. airway widely patent. Lungs: No movement. Heart: Absent sounds. Extremities: Now tepid/cool. Neuro: A/P Assessment and Plan Assessment: 1. Hypotension. 2. Dehydration. 3. Possible sepsis. 4. Pancreatitis ? 5. Ascites. Plan: 1. Aggressive hydration. 2. Broad abx coverage pending C&S. 3. Serial lactate. 4. Clarify care goals / code status. 5. Pepcid 6. SCDs. 7. Seymour. 8. Bronchodilators. 9. CT Head -> normal for age. 10. Cardiac markers -> neg 11. Carotid doppler study. Overall impression: Critically ill with unstable neurological status - waxing/ waning speech changes, improved on vasopressor support of blood pressure. She appeared moderately dehydrated on arrival and has responded to iv volume. Urine output acceptable. Her cerebral perfusion becomes compromised with hypotension. Persistent leukocytosis is worrisome. Update 1700 hours: After a lengthy discussion with the patient's daughter who is the healthcare surrogate, the surrogate has acknowledged a precipitous decline in Janel's mental status. She opts for DNR status now and no further aggressive efforts to sustain vital signs. at 0640. Vish Becerra MD Nov 21, 2016 07:27
--- NOTE | 2016-11-21 07:29 | DEATH SUM ---
Summary Demographics Date Pronounced : Nov 21, 2016 Time Of : 0640 Pronounced By: Rosanne Do/ Aimee Gee/Tonya Becerra M.D. Preliminary Cause of : Other Vish Becerra MD Nov 21, 2016 07:28
--- NOTE | 2016-11-21 07:34 | HHI.DS ---
Discharge Summary Admission Date Nov 18, 2016 at 12:55 Discharge Date: Nov 21, 2016 Admitting Diagnosis Pancreatitis, R Lung Mass, HyperK (1) Pancreatitis ICD Code: K85.90 Diagnosis: Principal (2) Sepsis ICD Code: A41.9 Diagnosis: Principal (3) HTN (hypertension) ICD Code: I10 Diagnosis: Secondary (4) Altered mental status, unspecified ICD Code: R41.82 Diagnosis: Secondary Brief History Mrs. Salgado is an 81-year-old female. She is here secondary to lower back pain and nausea. Workup shows elevation in lipase suggestive of pancreatitis. She does not drink alcohol but rarely. No recent alcohol use. Density at right medial lung is also seen on abdominal CT which is a mass versus pneumonia. Other conditions at baseline her hypertension lower extremity neuropathy right breast mass and kyphosis. When seen her pain is improved but she is nauseous from pain treatments. She received morphine in the ER. Zofran has benefited her nausea. She has no prior history of pancreatitis. No acute evidence of infection on labs to suggest the presence of a pneumonia. No cough, fever, chills or fatigue preceding the pain onset today. Her lower back pain could be a symptom pneumonia however. Her daughter does report she has been coughing at home. CBC/BMP: 11/21/16 0338 11/20/16 0359 Significant Findings Laboratory Tests Test 11/18/16 11/18/16 11/19/16 11/19/16 09:55 12:15 05:46 12:24 Neutrophils (%) (Auto) 81.3 % 87.5 % (16.0-70.0) (16.0-70.0) Neutrophils # (Auto) 8.0 TH/MM3 16.0 TH/MM3 (1.8-7.7) (1.8-7.7) Sodium Level 135 MEQ/L 134 MEQ/L (136-145) (136-145) Potassium Level 5.5 MEQ/L (3.5-5.1) Estimat Glomerular Filtration 84 ML/MIN (>89) 62 ML/MIN (>89) Rate Random Glucose 115 MG/DL 157 MG/DL (74-106) (74-106) Aspartate Amino Transf 50 U/L (15-37) (AST/SGOT) Lipase 418 U/L 56 U/L (73-393) (73-393) Urine Specific [place] 1.050 (1.002-1.035) Urine Ketones 10 mg/dL (NEG) Urine Mucus FEW /lpf (OCC) White Blood Count 18.3 TH/MM3 (4.0-11.0) Lymphocytes (%) (Auto) 6.2 % (9.0-44.0) Monocytes # (Auto) 1.1 TH/MM3 (0-0.9) Neutrophils % (Manual) 74 % (16-70) Band Neutrophils % 21 % (0-6) Lymphocytes % 3 % (9-44) Neutrophils # (Manual) 17.4 TH/MM3 (1.8-7.7) Blood Urea Nitrogen 22 MG/DL (7-18) Calcium Level 8.3 MG/DL (8.5-10.1) Amylase Level 22 U/L (25-115) Lactic Acid Level 3.0 mmol/L (0.4-2.0) Test 11/19/16 11/20/16 11/20/16 11/20/16 19:46 01:45 03:59 08:35 D-Dimer Quantitative (PE/DVT) 5.24 MG/L FEU (0.00-0.50) Lactic Acid Level 2.5 mmol/L (0.4-2.0) Total Creatine Kinase 197 U/L 301 U/L 377 U/L (26-192) (26-192) (26-192) Creatine Kinase MB 9.7 NG/ML 12.7 NG/ML 14.1 NG/ML (0.5-3.6) (0.5-3.6) (0.5-3.6) Creatine Kinase MB % 4.9 % (0.0-4.0) 4.2 % (0.0-4.0) Troponin I LESS THAN 0.02 LESS THAN 0.02 NG/ML NG/ML (0.02-0.05) (0.02-0.05) B-Type Natriuretic Peptide 144 PG/ML (0-100) White Blood Count 17.1 TH/MM3 (4.0-11.0) Mean Corpuscular Hemoglobin 31.8 % Concent (32.0-36.0) Neutrophils (%) (Auto) 88.4 % (16.0-70.0) Lymphocytes (%) (Auto) 6.3 % (9.0-44.0) Neutrophils # (Auto) 15.1 TH/MM3 (1.8-7.7) Sodium Level 135 MEQ/L (136-145) Blood Urea Nitrogen 29 MG/DL (7-18) Creatinine 1.53 MG/DL (0.50-1.00) Estimat Glomerular Filtration 33 ML/MIN (>89) Rate Calcium Level 8.0 MG/DL (8.5-10.1) Alkaline Phosphatase 40 U/L (45-117) Total Protein 5.7 GM/DL (6.4-8.2) Albumin 2.1 GM/DL (3.4-5.0) Lipase 47 U/L (73-393) Test 11/21/16 03:38 White Blood Count 14.7 TH/MM3 (4.0-11.0) Red Blood Count 3.47 MIL/MM3 (4.00-5.30) Hemoglobin 10.6 GM/DL (11.6-15.3) Hematocrit 32.5 % (35.0-46.0) Neutrophils (%) (Auto) 94.7 % (16.0-70.0) Lymphocytes (%) (Auto) 4.7 % (9.0-44.0) Neutrophils # (Auto) 13.9 TH/MM3 (1.8-7.7) Lymphocytes # (Auto) 0.7 TH/MM3 (1.0-4.8) Band Neutrophils % 46 % (0-6) Lymphocytes % 2 % (9-44) Neutrophils # (Manual) 14.1 TH/MM3 (1.8-7.7) Metamyelocytes 31 % (0-1) Nucleated Red Blood Cells 3 /100 WBC (0-0) Toxic Vacuolation PRESENT (NONE SEEN) Acanthocytes OCC (NORMAL) PE at Discharge GENERAL: NAD, A&Ox3 HEAD: Normocephalic. NECK: Supple, trachea midline. No lymphadenopathy. EYES: No scleral icterus. No injection or drainage. CARDIOVASCULAR: Regular rate and rhythm without murmurs, gallops, or rubs. RESPIRATORY: Breath sounds equal bilaterally. No accessory muscle use. GASTROINTESTINAL: Abdomen soft, non-tender, nondistended. Epigastric tenderness MUSCULOSKELETAL: No cyanosis, or edema. Kyphosis SKIN: Warm and dry. NEURO: No focal neurological deficitis. Transfer Summary 81 yo female with PMH of HTN and breast mass being followed as outpatient admitted on 11/18 for abdominal pain and nausea/vomiting. Found to have lipase of 418, admitted for pancreatitis. Treated with IVFs and low fat diet. CT abd/ pelvis unremarkable with possible mass vs consolidation in RLL. Patient developed a new leukocytosis this morning with hypotension not responsive to fluid. She became altered, thinking she was at home. A&O x [address] chest was remarkable for lung scarring, no consolidation. Lactic acid 3.0. Remains hypotensive in the 70s/50s despite aggressive fluid resuscitation. Started on Vanc/Zosyn this am for SIRS without improvement. Patient will be transferred to the ICU for septic shock. Hospital Course 81 y/o woman presented through ED with nausea and back pain. Mild elevation in lipase. Leukocytosis has developed overnight associated with mild hypothermia and hypotension (in a normally hypertensive woman). Now apparently hypotensive and not responding to initial fluid challenges. LV is hypertrophied on CT scan and empty. No obvious acute pathology aside from ascites and a pancake of atelectasis in the right lung base. Lungs are severely emphysematous on CT, mid right lung field opacity/scar does not look acute. Update 1805 hrs: She had another episode of hypotension to the low 80s and developed garbled speech. We will start neosynephrine and obtain a head CT. She has extensive atherosclerotic disease and undoubtedly is accustomed to a much higher blood pressure. 11/20: Head CT without acute injury. Persistently elevated wbcs, etiology unclear. Urine benign on admission. Right lung atelectasis not impressive. 11/21: Family elected to stop vasopressor and allow a natural . Patient gradually slipped into unconsciousness and at 0640 hours. Some family at bedside. She arrived severely dehydrated with symptoms and signs of pancreatitis. Hypothermia and leukocytosis persisted, associated with worsening hypotension. She was treated aggressively for sepsis though a source was never identified. She developed slurred speech and confusion with normal Head CT. Because of continued deterioration and fragile, elderly state, the family elected no aggressive support and requested a natural . She at 0640 hours on 11/21/16. Family was informed by me at bedside. Pt Condition on Discharge: Deteriorating Vish Becerra MD Nov 21, 2016 07:34
[2016-11-21] MEDS ORDERED: GABAPENTIN 300 MG CAP PO SCH (09:00)
[2016-11-21] MEDS ORDERED: ENOXAPARIN SODIUM 30 MG/0.3 ML SYRINGE SQ SCH (10:00)
[2016-11-22] MEDS ORDERED: PHARMACY ORDERED LAB ONE (11:45)
== END 2016-11-21 10:55 | disposition expired | DRG 871 ==
LOC: NEPC 09:08 → NEDA 12:51 → OBSVTOIN 12:55 → HOCB 16:01 → N03A 11-19 16:10
PROVIDERS: ADMIT Internal Medicine Critical Care Medicine; ATTEND Internal Medicine Critical Care Medicine
DX: A41.9 Sepsis, unspecified organism (principal); K85.90 Acute pancreatitis without necrosis or infection, unspecified; R18.8 Other ascites; E87.5 Hyperkalemia; K56.7 Ileus, unspecified; J44.9 Chronic obstructive pulmonary disease, unspecified; E86.0 Dehydration; E78.00 Pure hypercholesterolemia, unspecified; I10 Essential (primary) hypertension; G57.90 Unspecified mononeuropathy of unspecified lower limb; M40.209 Unspecified kyphosis, site unspecified; N63 Unspecified lump in breast; K57.90 Diverticulosis of intestine, part unspecified, without perforation or abscess without bleeding; M81.0 Age-related osteoporosis without current pathological fracture; F17.210 Nicotine dependence, cigarettes, uncomplicated; Z66 Do not resuscitate
CPT/HCPCS: 70450; 71260; 74177; 80048; 80053; 81001; 82150; 82550; 82552; 83605; 83690; 83880; 84484; 85007; 85025; 85027; 85379; 87040; 87641; 93005; 93880; 96374; 96375; J1170; J1650; J1956; J2270; J2370; J2405; J2543; J3370; J7030; J7040; J7050; J7060; Q9967